=== PATIENT | female | born 1960 | race Caucasian/White ===

== ENCOUNTER 2018-02-05 22:29 | Emergency (ER) | payer OTHER ==
[~2018-02-05] VITALS: Ht 177.8 cm; Wt 86.2 kg
--- NOTE | ~2018-02-05 | EKG ---
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
--- NOTE | ~2018-02-05 | EKG ---
[place] [address] [address] 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
[2018-02-05 23:22] LABS: ABSOLUTE NEUTROPHILS 3.5 thou/uL (1.4-8.2); BASOPHILS 0.6 % (0.0-2.0); EOSINOPHILS 3.3 % (0.0-3.0); HEMATOCRIT 41.3 % (37.0-47.0); LYMPHOCYTES 36.2 % (24.0-44.0); MCH 30.8 pg (26.0-34.0); MCHC 33.9 g/dL (28.0-37.0); MCV 90.9 fL (80.0-100.0); MONOCYTES 6.1 % (1.0-8.0); PLATELET COUNT 245 thou/uL (150-400); POLYS 53.8 % (36.0-66.0); RBC 4.54 mil/uL (4.20-5.00); RDW 13.1 % (10.5-14.5); WBC 6.4 thou/uL (4.0-11.0)
[2018-02-05 23:33] LABS: ANION GAP 5 mmol/L (7-16); BUN 16 mg/dL (7-18); CHLORIDE 106 mmol/L (98-107); CO2 27 mmol/L (21-32); GLUCOSE 97 mg/dL (74-106); POTASSIUM 4.3 mmol/L (3.5-5.1); SODIUM 138 mmol/L (136-145)
[2018-02-05 23:42] LABS: TROPONIN-I <0.06 ng/mL (<0.06)
[2018-02-06] MEDS ORDERED: SERTRALINE HCL50 MG PO (00:13)
[2018-02-06] MEDS ORDERED: LAMICTAL25 MG PO (00:15)
[2018-02-06] MEDS ORDERED: CLONAZEPAM 0.50.5 M1 PO (00:16)
[2018-02-06] MEDS ORDERED: VITAMIN D2000 UNIT PO (00:17)
[2018-02-06] MEDS ORDERED: LITHIUM CARBON150 MG PO (00:18)
[2018-02-06 02:18] VITALS: BP 126/68
== END 2018-02-06 02:19 | disposition home or self-care (01) ==
LOC: ER 22:29
PROVIDERS: Emergency Medicine
DX: R07.9 Chest pain, unspecified (principal); R68.84 Jaw pain; M79.602 Pain in left arm; Z87.891 Personal history of nicotine dependence